=== PATIENT | male | born 1970 | race American Indian/Alaskan Native ===

== ENCOUNTER 2022-01-18 05:28 | Emergency (ER) | payer SELFPAY ==
[2022-01-18] MEDS ORDERED: ONDANSETRON 4 MG/2 ML INJ IV ONE (06:17)
[2022-01-18] MEDS ORDERED: MORPHINE 4 MG/1 ML INJ IV ONE (06:17)
[2022-01-18 06:32] LABS: Calcium 8.6 mg/dL (8.4-10.2)
--- NOTE | 2022-01-18 07:37 | Cat Scan Report ---
CT ABDOMEN AND PELVIS WITHOUT CONTRAST HISTORY: left flank pain COMPARISON: None TECHNIQUE: Routine abdominal and pelvic CT exam performed without contrast. Lack of intravenous cont rast limits evaluation of the vascular and solid organs.. All CT scans at this location are performed using CT dose reduction for ALARA by means of automated exposure control. FINDINGS: CT ABDOMEN: Lung Bases: No significant abnormality. Liver: No significant abnormality. Biliary: No significant abnormality. Spleen: No significant abnormality. Unenlarged. Pancreas: No significant abnormality. Adrenals: No significant abnormality. Kidneys: There is mild left hydroureteronephrosis due to a tiny punctate stone in the distal left ure ter. Lymphatics: No lymphadenopathy. Vasculature: No significant abnormality. Bowel/Peritoneum: No significant abnormality. No free air. No free fluid. CT PELVIC: : No significant abnormality. Lymphatics: No lymphadenopathy. Osseous Structures: No aggressive appearing osseous lesions. Additional Findings: None IMPRESSION: 1. Tiny punctate stone in distal left ureter with resultant mild left hydroureteronephrosis. Signer Name: José Miguel Gomez MD Signed: 01/18/2022 7:33 AM Workstation Name: [id number]
[2022-01-18 08:10] LABS: Bilirubin,Urine NEG (Negative); Blood,Urine NEG (Negative); Color,Urine Yellow (Yellow); Protein,Urine <15 mg/dL mg/dL (Negative)
[2022-01-18 08:13] LABS: RBC,Urine < 1.0 /HPF (0.0-6.0)
[2022-01-18 08:14] LABS: WBC,Urine < 1.0 /HPF (0.0-6.0)
[2022-01-18] MEDS ORDERED: HYDROcodone/ACETAMINOPHEN 5-325 MG TAB PO ONE (08:18)
[2022-01-18] MEDS ORDERED: KETOROLAC 10 MG TAB PO ONE (08:18)
[2022-01-18 08:19] LABS: Basophils % (Auto) 0.6 % (0.0-1.8); Eosinophils # (Auto) 0.2 K/mm3 (0.0-0.4); Eosinophils % (Auto) 2.3 % (0.0-4.3); Hematocrit 42.5 % (35.5-45.6); Hemoglobin 14.4 gm/dl (11.8-15.2); Lymphocytes # (Auto) 3.5 K/mm3 (1.2-5.4); Lymphocytes % (Auto) 45.7 % (13.4-35.0); Mean Corpuscular HGB Conc 34 % (32-34); Mean Corpuscular Volume 78 fl (84-94); Monocytes # (Auto) 0.8 K/mm3 (0.0-0.8); Monocytes % (Auto) 10.6 % (0.0-7.3); Platelet Count 175 K/mm3 (140-440); Red Blood Count 5.47 M/mm3 (3.65-5.03); Red Cell Distribution Width 14.7 % (13.2-15.2)
--- NOTE | 2022-01-18 08:35 | Emergency Department Report ---
ED Abdominal Pain HPI - General Chief Complaint: Abdominal Pain Stated Complaint: LFT SIDE PAIN/NAUSEA Time Seen by Provider: 01/18/22 06:23 Source: patient Mode of arrival: Ambulatory Limitations: No Limitations - History of Present Illness Initial Comments: 51-year-old black male with a past medical history of HIV presents to the emergency department for evaluation of left flank pain. He states that he was awakened from his sleep with severe left flank pain that radiated to his left abdomen and nausea early this a.m. Denies fever, vomiting, diarrhea, dysuria, and penile discharge. MD Complaint: flank pain -: Sudden, hour(s) Severity scale (0 -10): 9 - Related Data Previous Rx's Medication Instructions Recorded Last Taken Type Acetaminophen/Codeine [Tylenol 1 tab PO Q6H PRN #12 tab 01/18/22 Unknown Rx /Codeine # 3 tab] Ketorolac [Toradol] 10 mg PO Q6H PRN #12 tab 01/18/22 Unknown Rx Ondansetron [Zofran Odt] 4 mg PO Q8HR #12 tab.rapdis 01/18/22 Unknown Rx Tamsulosin [Flomax] 0.4 mg PO QDAY #12 cap 01/18/22 Unknown Rx Allergies Allergy/AdvReac Type Severity Reaction Status Date / Time No Known Allergies Allergy Unverified 01/18/22 05:34 ED Review of Systems ROS: Stated complaint: LFT SIDE PAIN/NAUSEA Other details as noted in HPI Comment: All other systems reviewed and negative Constitutional: denies: chills Respiratory: denies: shortness of breath, SOB with exertion, SOB at rest Cardiovascular: denies: chest pain, palpitations, dyspnea on exertion, edema, syncope Gastrointestinal: abdominal pain, nausea. denies: vomiting, diarrhea, hematemesis, melena, hematochezia Genitourinary: denies: urgency, dysuria, frequency, hematuria, discharge, testicular pain Musculoskeletal: back pain Neurological: denies: headache, weakness, numbness, paresthesias, abnormal gait, vertigo ED Past Medical Hx - Medications Home Medications: Home Medications Medication Instructions Recorded Confirmed Last Taken Type Acetaminophen/Codeine [Tylenol 1 tab PO Q6H PRN #12 tab 01/18/22 Unknown Rx /Codeine # 3 tab] Ketorolac [Toradol] 10 mg PO Q6H PRN #12 tab 01/18/22 Unknown Rx Ondansetron [Zofran Odt] 4 mg PO Q8HR #12 tab.rapdis 01/18/22 Unknown Rx Tamsulosin [Flomax] 0.4 mg PO QDAY #12 cap 01/18/22 Unknown Rx ED Physical Exam - General Limitations: No Limitations General appearance: alert, in no apparent distress - Head Head exam: Present: atraumatic, normocephalic - Eye Eye exam: Present: normal appearance. Absent: conjunctival injection - Neck Neck exam: Present: normal inspection. Absent: tenderness - Respiratory Respiratory exam: Present: normal lung sounds bilaterally. Absent: respiratory distress, wheezes, rales, rhonchi, stridor, chest wall tenderness - Cardiovascular Cardiovascular Exam: Present: regular rate, normal heart sounds - GI/Abdominal GI/Abdominal exam: Present: soft, tenderness (Left flank and left upper and lower quadrant), normal bowel sounds. Absent: distended, guarding, rebound, rigid - Extremities Exam Extremities exam: Present: normal inspection, normal capillary refill. Absent: full ROM, pedal edema, joint swelling - Back Exam Back exam: Present: normal inspection, tenderness (Left flank). Absent: CVA tenderness (R), CVA tenderness (L) - Neurological Exam Neurological exam: Present: alert, oriented X3 - Psychiatric Psychiatric exam: Present: normal affect, normal mood - Skin Skin exam: Present: warm, dry, intact, normal color ED Course Vital Signs 01/18/22 08:44 Pulse Rate 85 Respiratory 16 Rate Blood Pressure 144/80 [Right] O2 Sat by Pulse 100 Oximetry - Reevaluation(s) Reevaluation #1: 01/18/22 08:41 Nausea resolved and pain improved. ED Medical Decision Making - Lab Data Result diagrams: 01/18/22 05:51 01/18/22 05:51 - Radiology Data Radiology results: report reviewed CT abdomen pelvis without contrast: FINDINGS: CT ABDOMEN: Lung Bases: No significant abnormality. Liver: No significant abnormality. Biliary: No significant abnormality. Spleen: No significant abnormality. Unenlarged. Pancreas: No significant abnormality. Adrenals: No significant abnormality. Kidneys: There is mild left hydroureteronephrosis due to a tiny punctate stone in the distal left ureter. Lymphatics: No lymphadenopathy. Vasculature: No significant abnormality. Bowel/Peritoneum: No significant abnormality. No free air. No free fluid. CT PELVIC: : No significant abnormality. Lymphatics: No lymphadenopathy. Osseous Structures: No aggressive appearing osseous lesions. Additional Findings: None IMPRESSION: 1. Tiny punctate stone in distal left ureter with resultant mild left hy droureteronephrosis. - Medical Decision Making 51-year-old black male with a past medical history of HIV presents to the emergency department for evaluation of left flank pain. He states that he was awakened from his sleep with severe left flank pain that radiated to his left abdomen and nausea early this a.m. Denies fever, vomiting, diarrhea, dysuria, and penile discharge. No gross abnormalities noted on exam or on labs. CT positive for left ureter kidney stone. UA negative for UTI. Pain significantly improved after medication and nausea resolved. Patient will be treated with Flomax daily at home to facilitate stone passage, Toradol and Tylenol 3 as needed for pain, and Zofran for nausea. He is advised to take medications as prescribed and follow- up with urology or primary care provider if no improvement or worsening symptoms. He verbalized understanding of and agreement with plan of care. - Differential Diagnosis Kidney stone, diverticulitis, colitis, UTI Critical care attestation.: If time is entered above; I have spent that time in minutes in the direct care of this critically ill patient, excluding procedure time. ED Disposition Clinical Impression: Kidney stone on left side Disposition: 01 HOME / SELF CARE / HOMELESS Is pt being admited?: No Does the pt Need Aspirin: No Condition: Stable Instructions: Low-Purine Eating Plan, Renal Colic, [id number], Kidney Stones, [id number], Dietary Guidelines to Help Prevent Kidney Stones Additional Instructions: Take medications as prescribed. Drink plenty of noncaffeinated fluids. Follow- up with primary care provider or urology if no improvement or worsening symptoms. Return to the emergency department as needed. Prescriptions: Tamsulosin [Flomax] 0.4 mg PO QDAY #12 cap Ketorolac [Toradol] 10 mg PO Q6H PRN #12 tab PRN Reason: Pain Acetaminophen/Codeine [Tylenol /Codeine # 3 tab] 1 tab PO Q6H PRN #12 tab PRN Reason: Pain , Severe (7-10) Ondansetron [Zofran Odt] 4 mg PO Q8HR #12 tab.rapdis Referrals: JAN GROVES MD [Referring] - 3-5 Days ADA WILCOX MD [Staff Physician] - 3-5 Days Time of Disposition: 08:35
[2022-01-18 08:45] VITALS: BP 144/80
== END 2022-01-18 08:45 | disposition home or self-care (01) ==
LOC: ED 05:28
DX: N20.2 Calculus of kidney with calculus of ureter (principal)
CPT/HCPCS: 36415; 74176; 80053; 81001; 85025; 96374; 96375; 99284; J2270; J2405; 99285